=== PATIENT | female | born 1970 ===

== ENCOUNTER 2016-11-27 19:55 | Emergency (ER) | payer OTHER ==
[2016-11-27] MEDS ORDERED: Sodium Chloride 0.9% 1,000 ML IV STA (20:27)
--- NOTE | 2016-11-27 20:31 | ED PDOC ---
"Arrival/HPI - General Chief Complaint: Female Genitourinary Time Seen by Provider: 11/27/16 20:22 Historian: Patient - History of Present Illness Narrative History of Present Illness (Text): 11/27/16 20:28 46 y/o female, no pmh, psychiatric history including depression, nkda, c/o rt. lower pelvic pain and rt. lower back pain x 3 days with no fall or trauma. Pelvic pain with no urinary /frequency, associated with the rt. lower back pain , stated that the period pain started again last week, on and off for the past 3 days, no fever or chills, had vaginal bleeding but resolved, no discharge, no flank pain, no nausea or vomiting, no palpitation, no other medical or psychological complaints. Past Medical History - Provider Review Nursing Documentation Reviewed: Yes - Psychiatric Hx Depression: Yes Hx Substance Use: No Family/Social History - Physician Review Nursing Documentation Reviewed: Yes Family/Social History: Unknown Family HX Smoking Status: no Hx Alcohol Use: No Hx Substance Use: No Allergies/Home Meds Allergies/Adverse Reactions: Allergies No Known Allergies Allergy (Verified 11/27/16 20:17) Review of Systems - Review of Systems Constitutional: absent: Fatigue, Fevers Eyes: absent: Vision Changes ENT: absent: Hearing Changes Respiratory: absent: SOB, Cough Cardiovascular: absent: Chest Pain Gastrointestinal: absent: Abdominal Pain, Nausea, Vomiting Genitourinary Female: absent: Dysuria, Frequency, Hematuria, Urine Output Changes, Vaginal Bleeding, Vaginal Discharge Musculoskeletal: Back Pain. absent: Arthralgias, Neck Pain, Joint Swelling, Myalgias Neurological: absent: Headache, Dizziness Physical Exam Vital Signs Reviewed: Yes Vital Signs Temp Pulse Resp BP Pulse Ox 11/27/16 22:19 98.3 F 63 18 141/87 99 11/27/16 20:11 98.1 F 88 18 138/86 98 Temperature: Afebrile Blood Pressure: Normal Pulse: Regular Respiratory Rate: Normal Appearance: Positive for: Well-Appearing, Non-Toxic, Comfortable Pain Distress: Moderate Mental Status: Positive for: Alert and Oriented X 3 - Systems Exam Head: Present: Atraumatic, Normocephalic Pupils: Present: PERRL Extroacular Muscles: Present: EOMI Conjunctiva: Present: Normal Mouth: Present: Moist Mucous Membranes Neck: Present: Normal Range of Motion Respiratory/Chest: Present: Clear to Auscultation, Good Air Exchange. No: Respiratory Distress, Accessory Muscle Use Cardiovascular: Present: Regular Rate and Rhythm, Normal S1, S2. No: Murmurs Abdomen: Present: Normal Bowel Sounds. 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 No: Vaginal Discharge , Vaginal Bleeding, Vaginal Lesions, Adenexal Tenderness, Adenexal Mass, Cervical Motion Tendernes, Odor Back: Present: Normal Inspection. No: CVA Tenderness, Midline Tenderness, Paraspinal Tenderness, Pain with Leg Raise, Decubitus Ulcer Upper Extremity: Present: Normal Inspection. No: Cyanosis, Edema Lower Extremity: Present: Normal Inspection. No: Edema Neurological: Present: GCS=15, Speech Normal, Motor Func Grossly Intact, Gait Normal, Memory Normal Skin: Present: Warm, Dry, Normal Color. No: Rashes Psychiatric: Present: Alert, Oriented x 3, Normal Insight, Normal Concentration Medical Decision Making ED Course and Treatment: 11/27/16 20:31 -labs/ua -Transvaginal sonogram -IVF/toradol -Observe and reassess 11/27/16 22:22 -Labs are non-significant -Urinalysis show no UTI -Sonogram show rt. ovarian cyst with the fibroid. Pt. has no left sided pelvic pain. -Pain resolved with the IVF/toradol. -I discussed all labs and radiology results with the patient, advised outpatient obgyn follow up. -Discharge home with motrin, outpatient follow up with your own pmd and obgyn within 2 days, return to the ER for any new or worsening signs or symptoms. - Lab Interpretations Lab Results: 11/27/16 20:38 11/27/16 20:38 Lab Results 11/27/16 20:38: Sodium 139, Potassium 3.8, Chloride 104, Carbon Dioxide 28, Anion Gap 11, BUN 11, Creatinine 1.0, Est GFR ( Amer) > 60, Est GFR (Non- Af Amer) 59, Random Glucose 79, Calcium 9.3, Total Bilirubin 0.3, AST 27, ALT 36 , Alkaline Phosphatase 71, Total Protein 7.8, Albumin 4.2, Globulin 3.6, Albumin /Globulin Ratio 1.2 11/27/16 20:38: Urine Color Yellow, Urine Appearance Sl cloudy, Urine pH 7.5, Ur Specific [place] 1.020, Urine Protein Negative, Urine Glucose (UA) Negative, Urine Ketones Negative, Urine Blood Large H, Urine Nitrate Negative, Urine Bilirubin Negative, Urine Urobilinogen 0.2, Ur Leukocyte Esterase Negative, Urine RBC 1 - 3, Urine WBC 0 - 2, Ur Epithelial Cells 4 - 5, Urine Bacteria Trace 11/27/16 20:38: WBC 9.6, RBC 4.39, Hgb 13.8, Hct 40.8, MCV 92.9, MCH 31.4, MCHC 33.8, RDW 13.4, Plt Count 335, MPV 10.2, Gran % 56.0, Lymph % (Auto) 36.0 H, [place] % (Auto) 3.8, Eos % (Auto) 3.7, Baso % (Auto) 0.5, Gran # 5.38, Lymph # 3.5 H, [place] # 0.4, Eos # 0.4, Baso # 0.05 I have reviewed the lab results: Yes Interpretation: No clinic. lab abnormalty - RAD Interpretation Radiology Orders: 11/27/16 20:27 TRANSVAGINAL [US] Stat FINDINGS: Uterus/cervix: Uterus measures 7.8 x 3.4 x 5.2 cm in size. 0.3 x 0.2 cm hypoechoic lesion within anterior fundus, nonspecific but possibly fibroid or cyst. Endometrium: 0.3 cm in thickness. Nabothian cyst. Right ovary: 2.4 x 2.3 x 1.5 cm in size. 2.0 x 1.1 x 2.0 cm anechoic lesion. Normal flow. Left ovary: Not visualized. Free fluid: Small free fluid within pelvis. Bladder: Unremarkable as visualized. IMPRESSION: 1. RIGHT ovarian cyst. 2. Incidental/non-acute findings are described above. EXAM: US Pelvis, Transvaginal CLINICAL HISTORY: 46 years old, female; Pain; Pelvic pain; Additional info: Pelvic and back pain TECHNIQUE: JASON SILVA | Final Radiology Report CONFIDENTIALITY STATEMENT This report is intended only for use by the referring physician, and only in accordance with law. If you received this in error, call [phone]. Page 2 of 2 Real-time transvaginal pelvic ultrasound (complete) with image documentation. Transvaginal imaging was used for better evaluation of the endometrium and adnexa. COMPARISON: No relevant prior studies available. FINDINGS: Uterus/cervix: Uterus measures 7.8 x 3.4 x 5.2 cm in size. 0.3 x 0.2 cm hypoechoic lesion within anterior fundus, nonspecific but possibly fibroid or cyst. Endometrium: 0.3 cm in thickness. Nabothian cyst. Right ovary: 2.4 x 2.3 x 1.5 cm in size. 2.0 x 1.1 x 2.0 cm anechoic lesion. Normal flow. Left ovary: Not visualized. Free fluid: Small free fluid within pelvis. Bladder: Empty bladder which cannot be evaluated with this probe. IMPRESSION: 1. RIGHT ovarian cyst. 2. Incidental/non-acute findings are described above. Thank you for allowing us to participate in the care of your patient. 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 Disposition/Present on Arrival - Present on Arrival Any Indicators Present on Arrival: No History of DVT/PE: No History of Uncontrolled Diabetes: No Urinary Catheter: No History of Decub. Ulcer: No History Surgical Site Infection Following: None - Disposition Have Diagnosis and Disposition been Completed?: Yes Diagnosis: Ovarian cyst, Uterine fibroid Disposition: HOME/ ROUTINE Disposition Time: 22:29 Patient Plan: Discharge Condition: IMPROVED Additional Instructions: Discharge home with motrin, outpatient follow up with your own pmd and obgyn within 2 days, return to the ER for any new or worsening signs or symptoms. Prescriptions: Ibuprofen [Motrin] 600 mg PO QID PRN #30 tab PRN Reason: Other Referrals: Patsy Koehler MD [Primary Care Provider] - Follow up with primary Terry Salguero DO [Staff Provider] - Follow up with primary Forms: WORK NOTE"
[2016-11-27 20:50] LABS: ADD MANUAL DIFF? NO
[2016-11-27 20:56] LABS: BASO # 0.05 K/mm3 (0.0-2.0); BASO % 0.5 % (0.0-3.0); EOS # 0.4 (0.0-0.7); EOS % 3.7 % (1.5-5.0); GRAN # 5.38 (1.4-6.5); HEMATOCRIT 40.8 % (36.0-48.0); LYMPH # 3.5 (1.2-3.4); MEAN CELL VOLUME 92.9 fL (80.0-105.0); MEAN CORPUSCULAR HEMOGLOBIN 31.4 pg (25.0-35.0); MEAN CORPUSCULAR HGB CONC 33.8 g/dl (31.0-37.0); MEAN PLATELET VOLUME 10.2 fl (7.0-11.0); MONO # 0.4 (0.1-0.6); MONO % 3.8 % (1.0-6.0); PLATELET COUNT 335 10^3/uL (120.0-450.0); RED CELL DISTRIBUTION WIDTH 13.4 % (11.5-14.5); WHITE BLOOD COUNT 9.6 10^3/ul (4.5-11.0)
[2016-11-27 20:58] LABS: PH,URINE 7.5 (4.7-8.0); URINE BILIRUBIN NEGATIVE (NEGATIVE); URINE BLOOD LARGE (NEGATIVE); URINE GLUCOSE (UA) NEGATIVE (NEGATIVE); URINE KETONE NEGATIVE (NEGATIVE); URINE LEUKOCYTE ESTERASE NEGATIVE Leu/uL (NEGATIVE); URINE PROTEIN NEGATIVE mg/dL (<30 mg/dL); URINE UROBILINOGEN 0.2 E.U./dL (<1 E.U./dL)
[2016-11-27 21:00] LABS: URINE APPEARANCE SL CLOUDY (CLEAR); URINE COLOR YELLOW (YELLOW)
[2016-11-27 21:02] LABS: URINE BACTERIA TRACE (NEG); URINE WBC 0 - 2 /hpf (0-6)
[2016-11-27 21:06] LABS: ALB/GLOB RATIO 1.2 (1.1-1.8); ALKALINE PHOSPHATASE 71 U/L (38-133); ALT/SGPT 36 U/L (7-56); AST/SGOT 27 U/L (15-39); BILIRUBIN,TOTAL 0.3 mg/dL (0.2-1.3); BLOOD UREA NITROGEN 11 mg/dL (7-21); CALCIUM 9.3 mg/dL (8.4-10.5); CARBON DIOXIDE 28 mmol/L (21-33); CHLORIDE 104 mmol/L (98-107); GFR AFRICAN-AMERICAN > 60; GLUCOSE,RANDOM 79 mg/dL (70-110); POTASSIUM 3.8 mmol/L (3.6-5.0); SODIUM 139 mmol/L (132-148); TOTAL PROTEIN 7.8 g/dL (5.8-8.3)
--- NOTE | 2016-11-27 21:59 | US ---
EXAM: US Pelvis Complete, Transabdominal CLINICAL HISTORY: 46 years old, female; Pain; Pelvic pain; Additional info: Pelvic and back pain TECHNIQUE: Real-time transabdominal pelvic ultrasound (complete) with image documentation. COMPARISON: No relevant prior studies available. FINDINGS: Uterus/cervix: Uterus measures 7.8 x 3.4 x 5.2 cm in size. 0.3 x 0.2 cm hypoechoic lesion within anterior fundus, nonspecific but possibly fibroid or cyst. Endometrium: 0.3 cm in thickness. Nabothian cyst. Right ovary: 2.4 x 2.3 x 1.5 cm in size. 2.0 x 1.1 x 2.0 cm anechoic lesion. Normal flow. Left ovary: Not visualized. Free fluid: Small free fluid within pelvis. Bladder: Unremarkable as visualized. IMPRESSION: 1. RIGHT ovarian cyst. 2. Incidental/non-acute findings are described above. EXAM: US Pelvis, Transvaginal CLINICAL HISTORY: 46 years old, female; Pain; Pelvic pain; Additional info: Pelvic and back pain TECHNIQUE: Real-time transvaginal pelvic ultrasound (complete) with image documentation. Transvaginal imaging was used for better evaluation of the endometrium and adnexa. COMPARISON: No relevant prior studies available. FINDINGS: Uterus/cervix: Uterus measures 7.8 x 3.4 x 5.2 cm in size. 0.3 x 0.2 cm hypoechoic lesion within anterior fundus, nonspecific but possibly fibroid or cyst. Endometrium: 0.3 cm in thickness. Nabothian cyst. Right ovary: 2.4 x 2.3 x 1.5 cm in size. 2.0 x 1.1 x 2.0 cm anechoic lesion. Normal flow. Left ovary: Not visualized. Free fluid: Small free fluid within pelvis. Bladder: Empty bladder which cannot be evaluated with this probe.
[2016-11-27 22:20] VITALS: BP 141/87; PULSE 63; TEMP 98.3
[2016-11-27 22:35] VITALS: RESP 16; O2SAT 98
== END 2016-11-27 22:35 | disposition home or self-care (01) ==
LOC: ED 19:55
DX: D25.9 Leiomyoma of uterus, unspecified (principal); N83.201 Unspecified ovarian cyst, right side
CPT/HCPCS: 76830; 80053; 81001; 85025; 96374; 99283; J1885; J7040

== ENCOUNTER 2017-09-24 01:54 | Emergency (ER) | payer OTHER ==
[2017-09-24 02:26] LABS: URINE BILIRUBIN NEGATIVE (NEGATIVE); URINE BLOOD LARGE (NEGATIVE); URINE GLUCOSE (UA) NEGATIVE (NEGATIVE); URINE LEUKOCYTE ESTERASE MODERATE Leu/uL (NEGATIVE); URINE PROTEIN 100 mg/dL (<30 mg/dL); URINE UROBILINOGEN 0.2 E.U./dL (<1 E.U./dL)
[2017-09-24 02:29] LABS: URINE APPEARANCE TURBID (CLEAR); URINE COLOR STRAW (YELLOW)
[2017-09-24 03:01] LABS: URINE BACTERIA MOD (NEG); URINE EPITHELIAL CELLS 0 - 2 /hpf (0-5); URINE RBC 25 - 30 /hpf (0-2); URINE WBC 25 - 30 /hpf (0-6)
[2017-09-24 04:21] LABS: BASO # 0.06 K/mm3 (0.0-2.0); BASO % 0.4 % (0.0-3.0); EOS # 0.4 (0.0-0.7); EOS % 2.3 % (1.5-5.0); GRAN # 10.64 (1.4-6.5); GRAN % 69.7 % (50.0-68.0); HEMOGLOBIN 12.5 g/dL (12.0-16.0); LYMPH # 3.6 (1.2-3.4); LYMPH % 23.8 % (22.0-35.0); MEAN CELL VOLUME 89.9 fl (80.0-105.0); MEAN CORPUSCULAR HEMOGLOBIN 30.1 pg (25.0-35.0); MEAN CORPUSCULAR HGB CONC 33.5 g/dl (31.0-37.0); MEAN PLATELET VOLUME 9.9 fl (7.0-11.0); MONO # 0.6 (0.1-0.6); MONO % 3.8 % (1.0-6.0); RBC 4.15 10^6/uL (3.5-6.1); RED CELL DISTRIBUTION WIDTH 13.2 % (11.5-14.5); WHITE BLOOD COUNT 15.3 10^3/ul (4.5-11.0)
[2017-09-24] MEDS ORDERED: Sodium Chloride 0.9% 1,000 ML IV STA (04:28)
[2017-09-24] MEDS ORDERED: cefTRIAXone 2 GM IN NS 2 GM/100 ML BAG IVPB STA (04:28)
[2017-09-24 04:35] LABS: INR 0.93 (0.93-1.08); PROTHROMBIN TIME 10.6 SECONDS (9.4-12.5)
[2017-09-24 04:36] LABS: ALB/GLOB RATIO 1.1 (1.1-1.8); ALBUMIN 3.9 g/dL (3.0-4.8); ALT/SGPT 32 U/L (7-56); AST/SGOT 26 U/L (14-36); BLOOD UREA NITROGEN 16 mg/dL (7-21); CALCIUM 9.6 mg/dL (8.4-10.5); GFR AFRICAN-AMERICAN > 60; GFR NON-AFRICAN AMERICAN > 60; LIPASE 116 U/L (23-300)
--- NOTE | 2017-09-24 04:36 | ED PDOC ---
Arrival/HPI - General Chief Complaint: Female Genitourinary Time Seen by Provider: 09/24/17 02:43 Historian: Patient - History of Present Illness Narrative History of Present Illness (Text): 09/24/17 04:35 47 year old whose past medical history includes depression and right ovarian cysts, presents to the emergency department complaining of urinary frequency, urgency, and burning for the past 3 days. Patient also reports suprapubic abdominal pain, but denies any fever, chills, chest pain, shortness of breath, nausea, vomiting, diarrhea, vaginal bleeding/discharge, back pain, neck pain, headache, dizziness, or any other complaints. Time/Duration: Other (3 days) Symptom Onset: Gradual Symptom Course: Unchanged Activities at Onset: Light Context: Home Past Medical History - Provider Review Nursing Documentation Reviewed: Yes - Psychiatric Hx Depression: Yes Hx Substance Use: No Family/Social History - Physician Review Nursing Documentation Reviewed: Yes Family/Social History: No Known Family HX Smoking Status: Never Smoked Hx Alcohol Use: No Hx Substance Use: No Allergies/Home Meds Allergies/Adverse Reactions: Allergies No Known Allergies Allergy (Verified 11/27/16 20:17) Review of Systems - Physician Review All systems were reviewed & negative as marked: Yes - Review of Systems Constitutional: absent: Fevers, Other (Chills) Respiratory: absent: SOB Cardiovascular: absent: Chest Pain Gastrointestinal: Abdominal Pain (suprapubic pain). absent: Diarrhea, Nausea, Vomiting Genitourinary Female: Dysuria, Frequency, Other (urinary urgency ) Musculoskeletal: absent: Back Pain, Neck Pain Neurological: absent: Headache, Dizziness Physical Exam Vital Signs Reviewed: Yes Vital Signs Temp Pulse Resp BP Pulse Ox 09/24/17 07:54 79 18 124/72 100 09/24/17 05:54 74 18 122/70 100 09/24/17 03:54 98.2 F 84 18 126/76 99 09/24/17 02:07 98.4 F 84 18 121/70 99 Temperature: Afebrile Blood Pressure: Normal Pulse: Regular Respiratory Rate: Normal Appearance: Positive for: Well-Appearing, Non-Toxic, Comfortable Pain Distress: None Mental Status: Positive for: Alert and Oriented X 3 - Systems Exam Head: Present: Atraumatic, Normocephalic Pupils: Present: PERRL Extroacular Muscles: Present: EOMI Conjunctiva: Present: Normal Mouth: Present: Moist Mucous Membranes Neck: Present: Normal Range of Motion Respiratory/Chest: Present: Clear to Auscultation, Good Air Exchange. No: Respiratory Distress, Accessory Muscle Use Cardiovascular: Present: Regular Rate and Rhythm, Normal S1, S2. No: Murmurs Abdomen: Present: Tenderness (Suprapubic tenderness). No: Distention, Peritoneal Signs Back: Present: Normal Inspection Upper Extremity: Present: Normal Inspection. No: Cyanosis, Edema Lower Extremity: Present: Normal Inspection. No: Edema Neurological: Present: GCS=15, CN II-XII Intact, Speech Normal Skin: Present: Warm, Dry, Normal Color. No: Rashes Psychiatric: Present: Alert, Oriented x 3, Normal Insight, Normal Concentration Medical Decision Making ED Course and Treatment: 09/24/17 04:34 Impression: 47 year old female presents complaining of urinary frequency, urgency, and burning for the past 3 days associated with suprapubic pain. Plan: -- Labs -- Pyridium, Rocephin, IV Fluids -- Urine Culture -- Urinalysis w/ micro -- Reassess and disposition Prior Visits: Notes and results from previous visits were reviewed. Patient was last seen in the emergency department on 11/27/16 presents complaining of pelvic pain. Patient was discharged. Progress Notes: Labs showed UTI. 09/24/17 05:18 On re-evaluation, patient feels better and is in no acute distress. I have discussed the results and plan with the patient, who expresses understanding. Patient in agreement with plan to be discharged home. Patient is stable for discharge. Patient was instructed to follow up with physician or return if symptoms worsen or new concerning symptoms arise. - Lab Interpretations Microbiology Results: Microbiology Results 09/24/17 02:15 Urine,Clean Catch Urine Culture - Preliminary Gram Negative [place] Lab Results: 09/24/17 04:00 09/24/17 04:00 Lab Results 09/24/17 04:00: Sodium 139, Potassium 3.7, Chloride 104, Carbon Dioxide 26, Anion Gap 13, BUN 16, Creatinine 0.8, Est GFR ( Amer) > 60, Est GFR (Non- Af Amer) > 60, Random Glucose 99, Calcium 9.6, Total Bilirubin 0.2, AST 26, ALT 32, Alkaline Phosphatase 78, Total Protein 7.3, Albumin 3.9, Globulin 3.4, Albumin/Globulin Ratio 1.1, Lipase 116 09/24/17 04:00: PT 10.6, INR 0.93 09/24/17 04:00: WBC 15.3 H D, RBC 4.15, Hgb 12.5, Hct 37.3, MCV 89.9, MCH 30.1, MCHC 33.5, RDW 13.2, Plt Count 337, MPV 9.9, Gran % 69.7 H, Lymph % (Auto) 23.8 , [place] % (Auto) 3.8, Eos % (Auto) 2.3, Baso % (Auto) 0.4, Gran # 10.64 H, Lymph # (Auto) 3.6 H, [place] # (Auto) 0.6, Eos # (Auto) 0.4, Baso # (Auto) 0.06 09/24/17 02:15: Urine Color Straw, Urine Appearance Turbid, Urine pH 6.0, Ur Specific [place] >= 1.030, Urine Protein 100 H, Urine Glucose (UA) Negative, Urine Ketones Trace H, Urine Blood Large H, Urine Nitrate Positive H, Urine Bilirubin Negative, Urine Urobilinogen 0.2, Ur Leukocyte Esterase Moderate H, Urine RBC 25 - 30, Urine WBC 25 - 30, Ur Epithelial Cells 0 - 2, Urine Bacteria Mod I have reviewed the lab results: Yes - Medication Orders Current Medication Orders: Discontinued Medications Ceftriaxone Sodium (Rocephin 2 Gm Ivpb) 2 gm in 100 mls @ 100 mls/hr IVPB STAT STA PRN Reason: Protocol Stop: 09/24/17 05:27 Last Admin: 09/24/17 04:59 Dose: 100 mls/hr eMAR Start Stop Document 09/24/17 04:59 KIKO (Rec: 09/24/17 04:59 KIKO [id number]) Intravenous Solution Start Date 09/24/17 Start Time 04:59 End Date 09/24/17 End time 05:29 Total Infusion Time 30 Sodium Chloride (Sodium Chloride 0.9%) 1,000 mls @ 999 mls/hr IV .Q1H1M STA Stop: 09/24/17 05:28 Last Admin: 09/24/17 05:00 Dose: 999 mls/hr eMAR Start Stop Document 09/24/17 05:00 KIKO (Rec: 09/24/17 05:00 KIKO [id number]) Intravenous Solution Start Date 09/24/17 Start Time 05:00 End Date 09/24/17 End time 05:30 Total Infusion Time 30 Phenazopyridine HCl (Pyridium) 200 mg PO STAT STA Stop: 09/24/17 05:18 Last Admin: 09/24/17 05:31 Dose: 200 mg - Scribe Statement The provider has reviewed the documentation as recorded by the Lawrence Murphy Provider Jamieibashlyn Attestation: All medical record entries made by the Lawrence were at my direction and personally dictated by me. I have reviewed the chart and agree that the record accurately reflects my personal performance of the history, physical exam, medical decision making, and the department course for this patient. I have also personally directed, reviewed, and agree with the discharge instructions and disposition. Disposition/Present on Arrival - Present on Arrival Any Indicators Present on Arrival: No History of DVT/PE: No History of Uncontrolled Diabetes: No Urinary Catheter: No History of Decub. Ulcer: No History Surgical Site Infection Following: None - Disposition Have Diagnosis and Disposition been Completed?: Yes Diagnosis: UTI (urinary tract infection) Disposition: HOME/ ROUTINE Disposition Time: 05:18 Patient Plan: Discharge Condition: GOOD Discharge Instructions (ExitCare): Urinary Tract Infection, Adult (DC) Additional Instructions: Nelly - Wear a panty liner as the pyridium will stain your clothing. [Scioto] Drink five 20oz blttles of water a day. See your doctor later this week. Return to us if worse or any problems. Anastacio- Dr. Chavo Khalil Prescriptions: Cephalexin [cephalexin] 500 mg PO QID #40 cap Phenazopyridine HCl [Pyridium] 200 mg PO TID #9 tablet Forms: STWA (Italian)
[2017-09-24 08:21] VITALS: BP 124/72; PULSE 79; RESP 18; TEMP 98.2; O2SAT 100
== END 2017-09-24 06:30 | disposition home or self-care (01) ==
LOC: ED 01:54
DX: N39.0 Urinary tract infection, site not specified (principal)
CPT/HCPCS: 80053; 81001; 83690; 85025; 85610; 87086; 96365; 99283; J0696; J7040

== ENCOUNTER 2018-02-17 19:09 | Emergency (ER) | payer OTHER ==
[2018-02-17 20:26] VITALS: BMI 24.5
--- NOTE | 2018-02-17 20:43 | ED PDOC ---
Arrival/HPI <Justen Mendieta - Last Filed: 02/17/18 21:11> - General Historian: Patient <Boaz Alonso - Last Filed: 02/18/18 14:42> - General Chief Complaint: Headache Time Seen by Provider: 02/17/18 19:46 - History of Present Illness Narrative History of Present Illness (Text): 02/17/18 20:40 47 y/o female, no significant pmh, psychiatric history including anxiety, nkda, c/o posterior headache and fatigue x 1 week with no fall or trauma. Pt. stated that she has been having posterior headache occipital region traveled to behind both ears, no change in hearing, stated that she has not been feeling well, been feeling very fatigue. Pt. has been feeling more fatigue than usual, stated that she gets tired easily from walking on the street, no leg swelling, no palpitation, no rash, no coughing, no night sweat, no other medical or psychological complaints. (Boaz Alonso) Past Medical History - Provider Review Nursing Documentation Reviewed: Yes - Infectious Disease Hx of Infectious Diseases: None - Cardiac Hx Cardiac Disorders: No - Pulmonary Hx Respiratory Disorders: No - Neurological Hx Neurological Disorder: No - HEENT Hx HEENT Disorder: No - Renal Hx Renal Disorder: No - Endocrine/Metabolic Hx Endocrine Disorders: No - Hematological/Oncological Hx Blood Disorders: No - Integumentary Hx Dermatological Disorder: No - Musculoskeletal/Rheumatological Hx Musculoskeletal Disorders: No - Gastrointestinal Hx Gastrointestinal Disorders: No - Genitourinary/Gynecological Hx Genitourinary Disorders: No - Psychiatric Hx Psychophysiologic Disorder: Yes Hx Depression: Yes Hx Substance Use: No <Boaz Alonso - Last Filed: 02/18/18 14:42> Family/Social History - Physician Review Nursing Documentation Reviewed: Yes Family/Social History: Unknown Family HX Smoking Status: Never Smoked Hx Alcohol Use: No Hx Substance Use: No <Boaz Alonso - Last Filed: 02/18/18 14:42> Allergies/Home Meds <Justen Mendieta - Last Filed: 02/17/18 21:11> <Boaz Alonso - Last Filed: 02/18/18 14:42> Allergies/Adverse Reactions: Allergies No Known Allergies Allergy (Verified 02/17/18 20:08) Home Medications: Home Meds Medication Instructions Recorded Confirmed DULoxetine [Cymbalta] 60 mg PO DAILY 02/17/18 02/17/18 DiphenhydrAMINE [Benadryl] 50 mg PO DAILY 02/17/18 02/17/18 LORazepam [Ativan] 1 mg PO HS 02/17/18 02/17/18 QUEtiapine [Seroquel] 25 mg PO HS 02/17/18 02/17/18 Review of Systems - Review of Systems Constitutional: Fatigue. absent: Fevers Eyes: absent: Vision Changes ENT: absent: Hearing Changes Respiratory: absent: SOB, Cough Cardiovascular: absent: Chest Pain Gastrointestinal: absent: Abdominal Pain, Nausea, Vomiting Musculoskeletal: absent: Arthralgias, Back Pain Skin: absent: Rash, Pruritis Neurological: Headache Psychiatric: absent: Anxiety, Depression <Boaz Alonso Q - Last Filed: 02/18/18 14:42> Physical Exam Vital Signs Reviewed: Yes Temperature: Afebrile Blood Pressure: Normal Pulse: Regular Respiratory Rate: Normal Appearance: Positive for: Well-Appearing, Non-Toxic, Comfortable Pain Distress: Moderate Mental Status: Positive for: Alert and Oriented X 3 - Systems Exam Head: Present: Atraumatic, Normocephalic, Other (no temporal artery tenderness) Pupils: Present: PERRL Extroacular Muscles: Present: EOMI Conjunctiva: Present: Normal Ears: Present: NORMAL TM, Normal Canal, Other (no mastoid tenderness). No: Erythema, TM Bulging, Fluid, TM Perf Mouth: Present: Moist Mucous Membranes Pharnyx: No: ERYTHEMA, EXUDATE, TONSILS ENLARGED Nose (External): Present: Atraumatic. No: Abrasion, Contusion, Laceration Nose (Internal): Present: Normal Inspection, No Active Bleeding. No: Rhinorrhea , Septal Hematoma, Epistaxis Neck: Present: Normal Range of Motion, Trachea Midline. No: Meningeal Signs, MIDLINE TENDERNESS, Paraspinal Tenderness, Lymphadenopathy Respiratory/Chest: Present: Clear to Auscultation, Good Air Exchange. No: Respiratory Distress, Accessory Muscle Use Cardiovascular: Present: Regular Rate and Rhythm, Normal S1, S2. No: Murmurs Abdomen: No: Tenderness, Distention, Peritoneal Signs, Rebound, Guarding Back: Present: Normal Inspection. No: CVA Tenderness, Midline Tenderness, Paraspinal Tenderness Upper Extremity: Present: Normal Inspection, Normal ROM, NORMAL PULSES, Neurovascularly Intact, Capillary Refill < 2s. No: Cyanosis, Edema, Tenderness , Swelling, Deformity Lower Extremity: Present: Normal Inspection, NORMAL PULSES, Normal ROM, Neurovascularly Intact, Capillary Refill < 2 s, Other (negative alonzo and recinos signs bilaterally). No: Edema, Tenderness, Swelling, Deformity Neurological: Present: GCS=15, CN II-XII Intact, Speech Normal, Motor Func Grossly Intact, Gait Normal, Memory Normal Skin: Present: Warm, Dry, Normal Color. No: Rashes Psychiatric: Present: Alert, Oriented x 3, Normal Insight, Normal Concentration <Boaz Alonso Q - Last Filed: 02/18/18 14:42> Vital Signs Temp Pulse Resp BP Pulse Ox 02/18/18 01:13 98.2 F 72 17 125/87 100 02/18/18 00:02 67 17 128/57 L 97 02/17/18 20:12 98.3 F 90 18 144/87 98 02/17/18 20:11 98.3 F 90 18 144/87 98 Medical Decision Making <Justen Mendieta - Last Filed: 02/17/18 21:11> - RAD Interpretation Airline Operations Agent: Radiologist - EKG Interpretation Interpreted by ED Physician: Yes Type: 12 lead EKG <Boaz Alonso Q - Last Filed: 02/18/18 14:42> ED Course and Treatment: 02/17/18 20:43 -Labs/bnp/troponin/ua -CT Head -Chest xray -EKG -IVF/reglan -Observe and reassess 02/17/18 23:49 -Urine hcg is negative -EKG: NSR @ 82 BPM, no ST elevation or depression, no T wave inversion. -CT Head show No acute intracranial findings. -Chest xray show no active disease except mild congestion (pt. has no coughing, clinically not related) -Labs are non-significant except 12.6 (likely stress induced, afebrile) -BNP show no acute findings -Troponin show no acute findings -UA show no UTI -Pt. feels much better after the toradol and reglan, -All labs and radiology results discussed with patient, no cardiopulmonary complaints, feeling much better after IVF. 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 (Boaz Alonso) - Lab Interpretations Lab Results: 02/17/18 20:00 02/17/18 20:00 Lab Results 02/17/18 20:00: Sodium 140, Potassium 4.1, Chloride 103, Carbon Dioxide 29, Anion Gap 13, BUN 10, Creatinine 0.6 L, Est GFR ( Amer) > 60, Est GFR ( Non-Af Amer) > 60, Random Glucose 94, Calcium 9.3, Magnesium 2.1, Total Bilirubin 0.2, AST 25, ALT 27, Alkaline Phosphatase 75, Lactate Dehydrogenase 367, Total Creatine Kinase 67, Troponin I < 0.01, NT-Pro-B Natriuret Pep 31.1, Total Protein 7.1, Albumin 3.9, Globulin 3.2, Albumin/Globulin Ratio 1.2 02/17/18 20:00: Urine Color Light yellow, Urine Appearance Clear, Urine pH 6.5, Ur Specific [place] 1.015, Urine Protein Negative, Urine Glucose (UA) Negative, Urine Ketones Negative, Urine Blood Trace-intact H, Urine Nitrate Negative, Urine Bilirubin Negative, Urine Urobilinogen 0.2, Ur Leukocyte Esterase Negative , Urine RBC 0 - 2, Urine WBC 0 - 2, Ur Epithelial Cells 3 - 4, Urine Bacteria Small 02/17/18 20:00: WBC 12.6 H, RBC 4.29, Hgb 13.1, Hct 38.7, MCV 90.2, MCH 30.5, MCHC 33.9, RDW 13.7, Plt Count 339, MPV 9.6, Gran % 63.7, Lymph % (Auto) 29.4, [place] % (Auto) 4.1, Eos % (Auto) 2.5, Baso % (Auto) 0.3, Gran # 8.06 H, Lymph # ( Auto) 3.7 H, [place] # (Auto) 0.5, Eos # (Auto) 0.3, Baso # (Auto) 0.04 - RAD Interpretation Radiology Orders: 02/17/18 20:38 HEAD W/O CONTRAST [CT] Stat CHEST PORTABLE [RAD] Stat CT Head: TECHNIQUE: Axial computed tomography images of the head/brain without intravenous contrast. All CT scans at this facility use at least one of these dose optimization techniques: automated exposure control; mA and/or kV adjustment per patient size (includes targeted exams where dose is matched to clinical indication); or iterative reconstruction. COMPARISON: No relevant prior studies available. FINDINGS: Brain: Normal. No hemorrhage. No significant white matter disease. No edema. Ventricles: Normal. No ventriculomegaly. Bones/joints: Normal. No acute fracture. Sinuses: Normal as visualized. No acute sinusitis. Mastoid air cells: Normal as visualized. No mastoid effusion. Soft tissues: Normal. IMPRESSION: No acute intracranial findings. Chest xray: HISTORY: medical clearance COMPARISON: No prior. FINDINGS: LUNGS: No active pulmonary disease. PLEURA: No significant pleural effusion identified, no pneumothorax apparent. CARDIOVASCULAR: Normal. OSSEOUS STRUCTURES: No significant abnormalities. VISUALIZED UPPER ABDOMEN: Normal. OTHER FINDINGS: None. IMPRESSION: No acute cardiopulmonary disease appreciated. (Boaz Alonso) - EKG Interpretation EKG Interpretation (Text): 02/17/18 21:41 -EKG: NSR @ 82 BPM, no ST elevation or depression, no T wave inversion. (Boaz Alonso) - Medication Orders Current Medication Orders: Discontinued Medications Sodium Chloride (Sodium Chloride 0.9%) 1,000 mls @ 999 mls/hr IV .Q1H1M STA Stop: 02/18/18 00:47 Last Admin: 02/18/18 00:00 Dose: 999 mls/hr eMAR Start Stop Document 02/18/18 00:00 IT (Rec: 02/18/18 00:00 IT [id number]) Intravenous Solution Start Date 02/18/18 Start Time 00:00 Ketorolac Tromethamine (Toradol) 30 mg IVP STAT STA Stop: 02/17/18 23:47 Last Admin: 02/18/18 00:00 Dose: 30 mg MAR Pain Assessment Document 02/18/18 00:00 IT (Rec: 02/18/18 00:00 IT [id number]) Pain Reassessment Is this a pain reassessment? No Sleep Is patient sleeping during reassessment? No Presence of Pain Presence of Pain Yes IVP Administration Document 02/18/18 00:00 IT (Rec: 02/18/18 00:00 IT [id number]) Charges for Administration # of IVP Administrations 1 Metoclopramide HCl (Reglan) 10 mg IVP STAT STA Stop: 02/17/18 20:39 Last Admin: 02/17/18 21:16 Dose: 10 mg IVP Administration Document 02/17/18 21:16 IT (Rec: 02/17/18 21:17 IT [id number]) Charges for Administration # of IVP Administrations 1 - PA / IVF EMBRYOLOGIST / Resident Statement QUANG has reviewed & agrees with the documentation as recorded. <Justen Mendieta - Last Filed: 02/17/18 21:11> - PA / IVF EMBRYOLOGIST / Resident Statement QUANG has reviewed & agrees with the documentation as recorded. QUANG has examined the patient and agrees with the treatment plan. <Boaz Alonso - Last Filed: 02/18/18 14:42> Disposition/Present on Arrival <Justen Mendieta - Last Filed: 02/17/18 21:11> - Present on Arrival Any Indicators Present on Arrival: No History of DVT/PE: No History of Uncontrolled Diabetes: No Urinary Catheter: No History of Decub. 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 Prescriptions: Naproxen 500 mg PO BID PRN #20 tablet PRN Reason: Other Referrals: Tristan Palomino MD [Primary Care Provider] - Follow up with primary Elliot Garay MD [Staff Provider] - Follow up with primary Robert Mixon MD [Staff Provider] - Follow up with primary Shelly Berumen MD [Staff Provider] - Follow up with primary Forms: [facility] (Bhutanese), WORK NOTE
[2018-02-17 21:22] LABS: ALB/GLOB RATIO 1.2 (1.1-1.8); ALBUMIN 3.9 g/dL (3.0-4.8); ALT/SGPT 27 U/L (7-56); AST/SGOT 25 U/L (14-36); BLOOD UREA NITROGEN 10 mg/dL (7-21); CALCIUM 9.3 mg/dL (8.4-10.5); GFR NON-AFRICAN AMERICAN > 60
[2018-02-17 21:34] LABS: B-TYPE NATRIURETIC PEPTIDE 31.1 pg/mL (0-450); TROPONIN I < 0.01 ng/mL
[2018-02-17 21:36] LABS: BASO # 0.04 K/mm3 (0.0-2.0); BASO % 0.3 % (0.0-3.0); EOS # 0.3 (0.0-0.7); EOS % 2.5 % (1.5-5.0); GRAN # 8.06 (1.4-6.5); GRAN % 63.7 % (50.0-68.0); HEMOGLOBIN 13.1 g/dL (12.0-16.0); LYMPH # 3.7 (1.2-3.4); LYMPH % 29.4 % (22.0-35.0); MEAN CELL VOLUME 90.2 fl (80.0-105.0); MEAN CORPUSCULAR HEMOGLOBIN 30.5 pg (25.0-35.0); MEAN CORPUSCULAR HGB CONC 33.9 g/dl (31.0-37.0); MEAN PLATELET VOLUME 9.6 fl (7.0-11.0); MONO # 0.5 (0.1-0.6); MONO % 4.1 % (1.0-6.0); RBC 4.29 10^6/uL (3.5-6.1); RED CELL DISTRIBUTION WIDTH 13.7 % (11.5-14.5); WHITE BLOOD COUNT 12.6 10^3/ul (4.5-11.0)
[2018-02-17 21:37] LABS: PH,URINE 6.5 (4.7-8.0); URINE BILIRUBIN NEGATIVE (NEGATIVE); URINE BLOOD TRACE-INTACT (NEGATIVE); URINE GLUCOSE (UA) NEGATIVE (NEGATIVE); URINE LEUKOCYTE ESTERASE NEGATIVE Leu/uL (NEGATIVE); URINE PROTEIN NEGATIVE mg/dL (<30 mg/dL); URINE UROBILINOGEN 0.2 E.U./dL (<1 E.U./dL)
[2018-02-17 21:50] LABS: URINE APPEARANCE CLEAR (CLEAR); URINE COLOR LIGHT YELLOW (YELLOW)
[2018-02-17 22:10] LABS: URINE BACTERIA SMALL (NEG); URINE RBC 0 - 2 /hpf (0-2); URINE WBC 0 - 2 /hpf (0-6)
[2018-02-17] MEDS ORDERED: Sodium Chloride 0.9% 1,000 ML IV STA (23:47)
[2018-02-18 00:02] VITALS: RESP 17
[2018-02-18 01:13] VITALS: BP 125/87; PULSE 72; TEMP 98.2; O2SAT 100
--- NOTE | 2018-02-18 08:34 | RAD ---
Date of service: 02/17/2018 HISTORY: medical clearance COMPARISON: No prior. FINDINGS: LUNGS: No active pulmonary disease. PLEURA: No significant pleural effusion identified, no pneumothorax apparent. CARDIOVASCULAR: Normal. OSSEOUS STRUCTURES: No significant abnormalities. VISUALIZED UPPER ABDOMEN: Normal. OTHER FINDINGS: None. IMPRESSION: No acute cardiopulmonary disease appreciated.
--- NOTE | 2018-02-18 09:10 | CARD ---
APPROVED REPORT Date of service: 02/17/2018 EKG Measurement Heart [id number] <Conclusion> Normal sinus rhythm Normal ECG No change
--- NOTE | 2018-02-18 09:23 | CT ---
Date of service: 02/17/2018 PROCEDURE: CT HEAD WITHOUT CONTRAST. HISTORY: headache x 1 week COMPARISON: None available. TECHNIQUE: Axial computed tomography images were obtained through the head/brain without intravenous contrast. Radiation dose: Total exam DLP = 857 mGy-cm. This CT exam was performed using one or more of the following dose reduction techniques: Automated exposure control, adjustment of the mA and/or kV according to patient size, and/or use of iterative reconstruction technique. FINDINGS: HEMORRHAGE: No intracranial hemorrhage. BRAIN: No mass effect or edema. No atrophy or chronic microvascular ischemic changes. VENTRICLES: Unremarkable. No hydrocephalus. CALVARIUM: Unremarkable. PARANASAL SINUSES: Unremarkable as visualized. No significant inflammatory changes. MASTOID AIR CELLS: Unremarkable as visualized. No inflammatory changes. OTHER FINDINGS: The report concurs with the preliminary [facility] report IMPRESSION: No acute findings
== END 2018-02-18 01:13 | disposition home or self-care (01) ==
LOC: ED 19:09
DX: G44.209 Tension-type headache, unspecified, not intractable (principal); R53.83 Other fatigue
CPT/HCPCS: 70450; 71045; 80053; 81001; 82550; 83615; 83735; 83880; 84484; 85025; 93005; 96374; 96375; 99285; J1885; J2765; J7030